=== PATIENT | male | born 1980 | race Caucasian/White ===

== ENCOUNTER 2019-09-02 06:58 | Emergency (ER) | payer OTHER, SELFPAY ==
--- NOTE | 2019-09-02 07:06 | ED_ITS ---
HPI - Abdominal Pain General Chief Complaint: Abdominal Pain Stated Complaint: lower rt abdominal pain Time Seen by Provider: 09/02/19 07:01 Source: patient Mode of arrival: Ambulatory Limitations: no limitations History of Present Illness HPI narrative: 38-year-old male former smoker with history of diabetes presents with a chief complaint of severe, sudden onset right flank pain with radiation to his groin that started last night. He denies any provocation or palliation. He states the pain became so intense the vomited once just prior to arrival. He denies any fever or chills nor problems with bowel movements. He has had no dysuria, frequency, urgency or hematuria. Patient denies any recent travel, ex posure to ill persons nor history of kidney stones. MD complaint: flank pain Onset (ago): hour(s) Pain Consistency: intermittent Location: R flank Severity: severe Quality: cramping and stabbing Radiation: RLQ Relieving factors: nothing Exacerbating factors: nothing Associated symptoms: nausea and vomiting Related Data Previous Rx's Medication Instructions Recorded hydrocodone-acetaminophen 1 tab PO Q4-6H PRN #10 tab 09/02/19 ketorolac 10 mg PO Q6H PRN #14 tab 09/02/19 ondansetron 4 mg PO TID-QID PRN #10 tab 09/02/19 tamsulosin [Flomax] 0.4 mg PO DAILY #10 cap 09/02/19 Allergies Allergy/AdvReac Type Severity Reaction Status Date / Time No Known Drug Allergies Allergy Verified 09/02/19 08:16 Review of Systems Constitutional Constitutional: Denies chills, Denies fatigue, Denies fever(s), Denies frequent falls, Denies lethargy and Denies weakness Eyes Eyes: Denies change in vision, Denies eye discharge, Denies irritation and Denies loss of vision ENT Ears, Nose, Mouth, and Throat: Denies change in voice, Denies dizziness, Denies neck pain, Denies sore throat and Denies throat swelling Cardiovascular Cardiovascular: Denies chest pain, Denies irregular heart rhythm, Denies lig htheadedness, Denies palpitations, Denies dyspnea, Denies dyspnea on exertion and Denies orthopnea Respiratory Respiratory: Denies cough, Denies dyspnea, Denies dyspnea on exertion and Denies wheezing Gastrointestinal Gastrointestinal: Reports abdominal pain, Denies change in bowel habits, Denies diarrhea, Reports nausea and Reports vomiting Genitourinary Genitourinary: Denies hematuria, Reports flank pain, Denies urinary incontinence and Denies urinary urgency Musculoskeletal Musculoskeletal: Denies back pain, Denies muscle weakness, Denies neck pain, Denies numbness and Denies tingling Integumentary/Breasts Skin/Breast: Denies pruritus, Denies erythema, Denies rash and Denies wounds Neurologic Neurologic: Denies behavioral changes, Denies confusion, Denies dizziness, Denies frequent falls, Denies loss of vision, Denies numbness, Denies tingling and Denies weakness Psychiatric Psychiatric: Denies anxiety, Denies behavioral changes, Denies confusion, Denies depression, Denies homicidal ideation and Denies suicidal ideation Endocrine Endocrine: Denies fatigue, Denies flushing and Denies palpitations Hematologic/Lymphatic Hematologic/Lymphatic: Denies easy bruising Allergic/Immunologic Allergic/Immunologic: Denies urticaria, Denies throat swelling and Denies wheez ing Patient History Social History Smoking Status: Former smoker Smoking Status: Former smoker Substance Use Type: does not use Exam Narrative Exam Narrative: GENERAL: [38] year old patient appears stated age. Well- nourished, well-developed patient, in mild distress. Obviously uncomfortable, pacing HEAD: Atraumatic. Normocephalic. EYES: Pupils equal round and reactive. Extraocular motions intact. No scleral ic terus. No injection or drainage. ENT: Nose without bleeding, purulent drainage. Throat without erythema, tonsillar hypertrophy or exudate. Airway patent. NECK: Trachea midline. Non tender CARDIOVASCULAR: Regular rate and rhythm without murmurs, gallops, or rubs. RESPIRATORY: Clear to auscultation. Breath sounds equal bilaterally. No wheezes, rales, or rhonchi. GASTROINTESTINAL: Abdomen soft, non-tender, nondistended. EXTREMITIES: No edema or joint tenderness. BACK: Nontender without deformity or crepitance. No flank tenderness. NEURO: AOx3. SKIN: No rash or erythema of visible areas Initial Vital Signs Initial Vital Signs: Vital Signs Temperature 97.8 F 09/02/19 07:17 Pulse Rate 99 H 09/02/19 07:17 Respiratory Rate 18 09/02/19 07:17 Blood Pressure 173/101 H 09/02/19 07:17 Pulse Oximetry 97 09/02/19 07:17 Course Orders Ordered: ED Orders 09/02/19 07:28 CT kidney ureter bladder (KUB) Stat 09/02/19 08:03 Basic Metabolic Panel Stat Complete Blood Count AUTO DIFF Stat Ondansetron HCl (Zofran) 4 mg IV Q4HR PRN PRN Reason: Nausea And Vomiting Last Admin: 09/02/19 08:08 Dose: 4 mg Documented by: ELEANOR Discontinued Medications Sodium Chloride (Normal Saline 0.9%) 1,000 mls @ 1,000 mls/hr IV BOLUS ONE Stop: 09/02/19 08:21 Last Admin: 09/02/19 08:09 Dose: 1,000 mls/hr Documented by: ELEANOR Ketorolac Tromethamine (Toradol) 15 mg IV NOW ONE Stop: 09/02/19 07:23 Last Admin: 09/02/19 08:08 Dose: 15 mg Documented by: ELEANOR Vital Signs Vital signs: Vital Signs - 8 hr 09/02/19 07:17 09/02/19 08:16 09/02/19 08:34 Temperature 97.8 F Pulse Rate 99 H 107 H 109 H Respiratory Rate 18 18 20 Blood Pressure 173/101 H Blood Pressure [Right Arm] 158/79 H 139/73 Pulse Oximetry 97 96 97 MDM - Abdominal Pain Lab Data Result diagrams: 09/02/19 08:03 09/02/19 08:03 Labs: Lab Results 09/02/19 09/02/19 Range/Units 08:03 08:03 WBC 8.3 (4.5-11.0) X10^3/uL RBC 4.61 (4.5-5.9) X10^6/uL Hgb 10.7 L (13.5-17.5) g/dL Hct 32.2 L (41-53) % MCV 69.9 L (80-100) fL MCH 23.2 L (26-34) PG MCHC 33.1 (30-36) % RDW 18.7 H (11.6-14.8) % Plt Count 297 (150-400) X10^3/uL Neut % (Auto) 74.1 (50-75) % Lymph % (Auto) 17.6 L (25-40) % [place] % (Auto) 6.0 (3-14) % Eos % (Auto) 1.6 L (2-4) % Baso % (Auto) 0.7 (0-2) % Neut # (Auto) 6100 (6271-7445) /uL Lymph # (Auto) 1500 (6879-3254) /uL [place] # (Auto) 500 (0-900) /uL Eos # (Auto) 100 (0-450) /uL Baso # (Auto) 100 (0-100) /uL Sodium 132 L (137-145) mmol/L Potassium 4.3 (3.4-5.1) mmol/L Chloride 99 (98-107) mmol/L Carbon Dioxide 17 L (22-32) mmol/L BUN 12 (9-20) mg/dL Creatinine 0.66 (0.66-1.25) mg/dL Estimated GFR > 60.0 (>60) mL/min BUN/Creatinine Ratio 18.2 (6-22) Glucose 336 H (70-100) mg/dL Calcium 9.1 (8.4-10.2) mg/dL Point of care testing: Urine Dip Bedside Urine Glucose 1000 mg/dl Bedside Urine Bilirubin - Negative Bedside Urine Ketone + 15 Urine Specific [place] 1.030 Bedside Urine Occult Blood +++ Bedside Urine pH 5.0 Bedside Urine Protein ++ 100 Bedside Urine Urobilinogen - Negative Bedside Urine Nitrite - Negative Bedside Urine Leukocytes - Negative Esterase Discharge Plan Departure Patient Disposition: Home Clinical Impression: Kidney calculus Instructions: DI for Kidney Stones Activity Restrictions/Additional Instructions: *You have been diagnosed with [ right sided 3mm kidney stone ] *What to do: *Take medications as directed *Follow up with your primary care provider in 2-3 days, call for an appointment. Let them know you were seen in the Emergency Department and that we ask that you be seen in follow up *Return to ER if you should have any new, worsening or concerning symptoms Prescriptions: New hydrocodone-acetaminophen 5-325 mg tablet 1 tab PO Q4-6H PRN (Reason: pain) Qty: 10 RF: 0 ketorolac 10 mg tablet 10 mg PO Q6H PRN (Reason: pain) Qty: 14 RF: 0 tamsulosin [Flomax] 0.4 mg capsule 0.4 mg PO DAILY Qty: 10 RF: 0 ondansetron 4 mg tablet,disintegrating 4 mg PO TID-QID PRN (Reason: nausea and vomiting) Qty: 10 RF: 0 Referrals: [facility] [Outside] Joselin Villegas MD [Physician] - ED Sign-out Cosign ED Attending Cosignature Attestation: I was immediately available in the department for consultation. This documentation has been reviewed and I agree with assessment and plan. Supervised by Gianni Ramirez DO
[2019-09-02 07:17] VITALS: BP 173/101; PULSE 99; RESP 18; TEMP 36.6; O2SAT 97; BMI 36.9
--- NOTE | 2019-09-02 07:28 | DI.CT.S_ITS ---
PROCEDURE: CT KIDNEY URETER BLADDER (KUB) INDICATIONS: severe RLQ pain TECHNIQUE: Noncontrast 5 mm thick sections acquired from the diaphragms to the symphysis. 5 mm thick coronal and sagittal reformats were then performed. For radiation dose reduction, the following was used: automated exposure control, adjustment of mA and/or kV according to patient size. COMPARISON: [facility], CT, CT ABD PELVIS W CON, 08/30/2016, 12:58. FINDINGS: Image quality: Diagnostic Lung bases: Lung bases are clear. Heart size is normal. Urinary system: There is a 4 x 4 by 4 mm calculus identified within the proximal right ureter (image 56, series 2) with associated [id number] up stream hydroureter and hydronephrosis. Perinephric edema is also present. No additional ureteral calculi are evident bilaterally. There is a punctate (1 mm) nonobstructing inferior left renal calculus (image 45, series 4). No hydronephrosis or hydroureter on the left is present. The bladder is decompressed. No bladder calculi are evident. The prostate is not enlarged. Other solid organs: The liver is hypodense when compared to the spleen. The spleen, pancreas, and adrenals are unremarkable. Peritoneum and bowel: Small bowel loops are nondilated. Moderate residual stool is seen within the colon. No free fluid, loculated fluid collection or free air is evident. Nodes and vessels: No retroperitoneal or mesenteric adenopathy by size criteria. Aorta and inferior vena cava are normal in caliber. Abdominal wall: No ventral hernias. Pelvis: No free pelvic fluid. No inguinal hernias or adenopathy. Bones: No suspicious bony lesions. No vertebral body compression fractures. IMPRESSION: 1. Small (4 mm) partially obstructing proximal right ureteral calculus with associated [id number]-hu-zbcopbul hydroureter and hydronephrosis. 2. Punctate nonobstructing inferior left renal calculus. 3. No bowel obstruction. 4. Hepatic steatosis. Note: The preliminary report provided by [facility]. is concordant with the final report. Dictated by: Nhan Beatty M.D. on 09/02/2019 at 8:14 Approved by: Nhan Beatty M.D. on 09/02/2019 at 8:20
[2019-09-02] MEDS: KETOROLAC 60 MG/2 ML VIAL 15 MG IV (08:08)
[2019-09-02] MEDS: ONDANSETRON 4 MG/2 ML INJ IV (08:08)
[2019-09-02] MEDS: SODIUM CHLORIDE 0.9% 1,000 ML 1000 ML IV (08:09)
[2019-09-02 08:16] VITALS: BP 158/79; PULSE 107; RESP 18; O2SAT 96
--- NOTE | 2019-09-02 08:18 | PC.NURSE ---
pt reports, while sitting developed right lower abdominal pain, unable to sleep due to pain, nausea and vomiting this morning, denies trauma,injuries or traveling, denies fever. arrived alert and awake, skin pale, dry ,+nausea, moving all ext. ambulate to bathroom with steady gait.
[2019-09-02 08:27] LABS: BUN Creatinine Ratio 18.2 (6-22); Blood Urea Nitrogen 12 mg/dL (9-20); Calcium 9.1 mg/dL (8.4-10.2); Carbon Dioxide 17 mmol/L (22-32); Chloride 99 mmol/L (98-107); Estimated Glomerular Filt Rate > 60.0 mL/min (>60); Glucose 336 mg/dL (70-100); HEMOLYSIS 49 (0-50); Potassium 4.3 mmol/L (3.4-5.1); Sodium 132 mmol/L (137-145)
[2019-09-02 08:34] VITALS: BP 139/73; PULSE 109; RESP 20; O2SAT 97
[2019-09-02 08:35] LABS: Add Manual Diff / Slide Review NO; Basophils Absolute Auto 100 /uL (0-100); Basophils Percent Auto 0.7 % (0-2); Eosinophils Absolute Auto 100 /uL (0-450); Eosinophils Percent Auto 1.6 % (2-4); Hematocrit 32.2 % (41-53); Hemoglobin 10.7 g/dL (13.5-17.5); Lymphocytes Absolute Auto 1500 /uL (1100-4500); Lymphocytes Percent Auto 17.6 % (25-40); Mean Corpuscular HGB Conc 33.1 % (30-36); Mean Corpuscular Hemoglobin 23.2 PG (26-34); Mean Corpuscular Volume 69.9 fL (80-100); Monocytes Absolute Auto 500 /uL (0-900); Neutrophils Absolute Auto 6100 /uL (1500-7000); Neutrophils Percent Auto 74.1 % (50-75); Platelet Count 297 X10^3/uL (150-400); Red Blood Cell Count 4.61 X10^6/uL (4.5-5.9); Red Cell Distribution Width 18.7 % (11.6-14.8); White Blood Cell Count 8.3 X10^3/uL (4.5-11.0)
--- NOTE | 2019-09-02 08:35 | PC.NURSE ---
pt able to sleep, easily awaken with verbal stimuli, states, feeling much better.
[2019-09-02 10:14] LABS: Anisocytosis 1+; Hypochromasia 1+; Microcytosis 1+
== END 2019-09-02 09:21 | disposition home or self-care (01) ==
PROVIDERS: Emergency Provider Emergency Medicine
DX: N20.0 Calculus of kidney (principal); E11.9 Type 2 diabetes mellitus without complications; R11.2 Nausea with vomiting, unspecified
CPT/HCPCS: 36415; 74176; 80048; 81003; 85025; 96361; 96374; 96375; 99284; J1885; J2405

== ENCOUNTER 2019-09-15 08:56 | Emergency (ER) | payer OTHER, SELFPAY ==
[2019-09-15 09:14] VITALS: BP 159/91; PULSE 98; RESP 19; TEMP 36.8; O2SAT 100; BMI 36.9
--- NOTE | 2019-09-15 09:15 | ED_ITS ---
HPI - General Adult General Chief complaint: Dental/Oral Stated complaint: Infection of gums x3 Time Seen by Provider: 09/15/19 09:12 Source: patient Mode of arrival: Ambulatory Limitations: no limitations History of Present Illness HPI narrative: 38-year-old male here for evaluation of right upper jaw pain. He states that he thinks he has a dental infection. He has not been on any antibiotics for this. Has been going on for the past 3 days. Took some leftover hydrocodone that he had at home yesterday because of the pain. No fevers. No problems swallowing. Related Data Previous Rx's Medication Instructions Recorded hydrocodone-acetaminophen 1 tab PO Q4-6H PRN #10 tab 09/02/19 ketorolac 10 mg PO Q6H PRN #14 tab 09/02/19 ondansetron 4 mg PO TID-QID PRN #10 tab 09/02/19 tamsulosin [Flomax] 0.4 mg PO DAILY #10 cap 09/02/19 penicillin V potassium 500 mg PO QID 7 Days #28 tab 09/15/19 Allergies Allergy/AdvReac Type Severity Reaction Status Date / Time No Known Drug Allergies Allergy Verified 09/02/19 08:16 Review of Systems Constitutional Constitutional: Denies fever(s) ENT Comments: Right upper jaw pain Cardiovascular Cardiovascular: Denies dyspnea Respiratory Respiratory: Denies dyspnea Integumentary/Breasts Skin/Breast: Denies lesions and Denies rash Neurologic Neurologic: Denies behavioral changes Psychiatric Psychiatric: Denies behavioral changes Patient History Medical History Diabetes (Inactive) Kidney calculus (Inactive) Social History Smoking Status: Former smoker Smoking Status: Former smoker Substance Use Type: does not use Exam Initial Vital Signs Initial Vital Signs: Vital Signs Temperature 98.2 F 09/15/19 09:14 Pulse Rate 98 H 09/15/19 09:14 Respiratory Rate 19 09/15/19 09:14 Blood Pressure 159/91 H 09/15/19 09:14 Pulse Oximetry 100 09/15/19 09:14 Const General: cooperative, comfortable and well developed Limitations: mental status not altered HENMT Head: normal to inspection and normocephalic Ears: TM's normal bilaterally Nose: external nose normal Face and sinus: normal facial exam Mouth: oral mucosae normal Teeth and gingiva: caries and fair dentition Throat: posterior oropharynx normal Resp Effort & Inspection: normal respiratory effort Skin Lesions: no lesions Rashes: no rashes Neuro General: alert and awake Cognition: normal cognition Speech: speech normal Extrem General: capillary refill normal Course Vital Signs Vital signs: Vital Signs - 8 hr 09/15/19 09:14 Temperature 98.2 F Pulse Rate 98 H Respiratory Rate 19 Blood Pressure 159/91 H Pulse Oximetry 100 Medical Decision Making MDM Narrative Medical decision making narrative: No problems breathing, no fevers, in no defined abscess seen on exam that would warrant intervention here in the ER. Is tender in his right upper jaw. Will send home on antibiotics due to presumed infection. He was given return precautions and follow-up instructions. He expressed understanding and agreement. Discharge Plan Departure Patient Disposition: Home Clinical Impression: Pain, dental Instructions: Tooth Abscess Activity Restrictions/Additional Instructions: You can take Tylenol and/or ibuprofen for any discomfort. I do recommend that you continue to make contact with your dentist for definitive treatment. Your prescription was electronically transmitted to [facility] Prescriptions: New penicillin V potassium 500 mg tablet 500 mg PO QID 7 Days Qty: 28 RF: 0 No Action hydrocodone-acetaminophen 5-325 mg tablet 1 tab PO Q4-6H PRN (Reason: pain) Qty: 10 RF: 0 ketorolac 10 mg tablet 10 mg PO Q6H PRN (Reason: pain) Qty: 14 RF: 0 tamsulosin [Flomax] 0.4 mg capsule 0.4 mg PO DAILY Qty: 10 RF: 0 ondansetron 4 mg tablet,disintegrating 4 mg PO TID-QID PRN (Reason: nausea and vomiting) Qty: 10 RF: 0
== END 2019-09-15 09:25 | disposition home or self-care (01) ==
PROVIDERS: Emergency Provider Emergency Medicine
DX: K08.89 Other specified disorders of teeth and supporting structures (principal); Z87.891 Personal history of nicotine dependence
CPT/HCPCS: 99281

== ENCOUNTER 2020-08-11 09:17 | Emergency (ER) | payer OTHER, SELFPAY ==
[2020-08-11 09:26] VITALS: BP 152/100; PULSE 80; RESP 15; TEMP 36.8; O2SAT 99; BMI 36.1
--- NOTE | 2020-08-11 09:31 | ED.GENADULT ---
HPI - General Adult General Chief complaint: Nausea/Vomiting/Diarrhea Stated complaint: ATE STEAK WEDNESDAY, DOESN'T FEEL LIKE IT DIGESTED Time Seen by Provider: 08/11/20 09:27 Source: patient Mode of arrival: Ambulatory Limitations: no limitations History of Present Illness HPI narrative: Patient is a 39-year-old male sent over from the walk-in clinic for evaluation of what he thinks is a piece of steak stuck in his esophagus. He states that 2 days ago he was eating steak and he swallowed it and felt like it got stuck in his upper esophagus. He has had the sensation since that time. He has not had any problems breathing. Has not vomited. He has been able to swallow liquids and has been able to eat soft foods. He was able to swallow his medications this morning. He has not tried anything for the symptoms. He states that a couple times over the past several months he has had issues like this however they have all resolved on their own. Related Data Previous Rx's Medication Instructions Recorded hydrocodone-acetaminophen 1 tab PO Q4-6H PRN #10 tab 09/02/19 ketorolac 10 mg PO Q6H PRN #14 tab 09/02/19 ondansetron 4 mg PO TID-QID PRN #10 tab 09/02/19 tamsulosin [Flomax] 0.4 mg PO DAILY #10 cap 09/02/19 Allergies Allergy/AdvReac Type Severity Reaction Status Date / Time No Known Drug Allergies Allergy Verified 08/11/20 09:29 Review of Systems Constitutional Constitutional: Denies fatigue, Denies fever(s) and Denies headache(s) ENT Ears, Nose, Mouth, and Throat: Denies headache(s) and Denies sore throat Cardiovascular Cardiovascular: Denies chest pain and Denies dyspnea Respiratory Respiratory: Denies dyspnea Gastrointestinal Gastrointestinal: Denies abdominal pain, Denies change in bowel habits, Denies nausea and Denies vomiting Comments: Steak stuck in his esophagus Integumentary/Breasts Skin/Breast: Denies lesions and Denies rash Neurologic Neurologic: Denies behavioral changes and Denies headache(s) Psychiatric Psychiatric: Denies behavioral changes Endocrine Endocrine: Denies fatigue Hematologic/Lymphatic On Anticoagulants: No Allergic/Immunologic Allergic/Immunologic: Denies urticaria Patient History Medical History (Updated 08/11/20 @ 10:22 by Joshua Jordan DO) Diabetes Kidney calculus Social History Smoking Status: Former smoker Smoking Status: Former smoker alcohol intake frequency: 0-2 drinks per day Substance Use Type: does not use Exam Initial Vital Signs Initial Vital Signs: Vital Signs Temperature 98.3 F 08/11/20 09:26 Pulse Rate 80 08/11/20 09:26 Respiratory Rate 15 08/11/20 09:26 Blood Pressure 152/100 H 08/11/20 09:26 Pulse Oximetry 99 08/11/20 09:26 Const General: cooperative, comfortable, well developed and well groomed Limitations: mental status not altered HENMT Head: normal to inspection and normocephalic Resp Effort & Inspection: normal respiratory effort Auscultation: clear to auscultation bilaterally Cardio Rate: regular rate Rhythm: regular rhythm Skin Lesions: no lesions Rashes: no rashes Neuro General: patient alert and patient awake Cognition: normal cognition Speech: speech normal Extrem General: normal to inspection and capillary refill normal Psych Appearance: grossly normal and well kempt Course Orders Ordered: ED Orders 08/11/20 09:38 Complete Blood Count AUTO DIFF Stat Comprehensive Metabolic Panel Stat Lipase Stat Discontinued Medications Al Hydrox/Mg Hydrox/Simethicone 20 ml/ Lidocaine HCl 15 ml 0 ml PO NOW ONE Stop: 08/11/20 09:31 Last Admin: 08/11/20 09:53 Dose: 35 ml Documented by: Glucagon (Glucagon,Human Recombinant 1 Mg/Ml Vial) 1 mg IV NOW ONE Stop: 08/11/20 09:27 Last Admin: 08/11/20 09:42 Dose: 1 mg Documented by: Vital Signs Vital signs: Vital Signs - 8 hr 08/11/20 09:26 Temperature 98.3 F Pulse Rate 80 Respiratory Rate 15 Blood Pressure 152/100 H Pulse Oximetry 99 Medical Decision Making Lab Data Lab results reviewed: Yes I reviewed the patient's lab results. Result diagrams: 08/11/20 09:35 08/11/20 09:35 Labs: Lab Results 08/11/20 08/11/20 Range/Units 09:35 09:35 WBC 6.7 (4.5-11.0) X10^3/uL RBC 5.11 (4.5-5.9) X10^6/uL Hgb 14.1 (13.5-17.5) g/dL Hct 42.6 (41-53) % MCV 83.4 (80-100) fL MCH 27.7 (26-34) PG MCHC 33.2 (30-36) % RDW 14.2 (11.6-14.8) % Plt Count 269 (150-400) X10^3/uL Neut % (Auto) 58.2 (50-75) % Lymph % (Auto) 31.3 (25-40) % [place] % (Auto) 7.1 (3-14) % Eos % (Auto) 2.7 (2-4) % Baso % (Auto) 0.7 (0-2) % Neut # (Auto) 3900 (5553-2203) /uL Lymph # (Auto) 2100 (5850-7929) /uL [place] # (Auto) 500 (0-900) /uL Eos # (Auto) 200 (0-450) /uL Baso # (Auto) 0 (0-100) /uL Sodium 136 L (137-145) mmol/L Potassium 4.3 (3.4-5.1) mmol/L Chloride 101 (98-107) mmol/L Carbon Dioxide 27 (22-32) mmol/L BUN 9 (9-20) mg/dL Creatinine 0.65 L (0.66-1.25) mg/dL Estimated GFR > 60.0 (>60) mL/min BUN/Creatinine Ratio 13.8 (6-22) Glucose 165 H (70-100) mg/dL Calcium 9.8 (8.4-10.2) mg/dL Total Bilirubin 0.7 (0.2-1.3) mg/dL AST 47 (17-59) IU/L ALT 68 H (<50) IU/L Alkaline Phosphatase 73 (38-126) U/L Total Protein 7.6 (6.3-8.2) g/dL Albumin 4.7 (3.5-5.0) g/dL Globulin 2.9 (1.7-4.1) g/dL Albumin/Globulin Ratio 1.6 (1.0-2.8) Lipase 68 (23-300) U/L [facility] Narrative Medical decision making narrative: Patient is not in any respiratory distress. He is able to tolerate his own secretions and even took his medications this morning and is able to drinking even tolerate soft foods. I have low suspicion for other etiologies such as pulmonary or cardiac. He states that the symptoms started after he swallowed a piece of steak and has continued since then and this is happened a couple times over the past couple months. Glucagon was unsuccessful. Minimal if any improvement with the GI cocktail. I did discuss the case with Dr. Pollard who stated that given the fact that he can tolerate his secretions and is able to eat and take his medications that patient can follow-up later this week and the general surgery clinic. I did discuss this with him. He is going to contact the [facility] in his primary doctor's office tomorrow for follow-up. He was given return precautions and follow-up instructions. He expressed understanding and agreement. Discharge Plan Departure Patient Disposition: Home Clinical Impression: Dysphagia Instructions: Esophageal Dysphagia Activity Restrictions/Additional Instructions: Recommend that you do continue to eat soft foods. Be sure you take small portion sizes. You can take your medications like normal. I did discuss her case with Dr. Pollard who was the general surgeon on-call today. He would like you to contact his office tomorrow at [phone]. Also recommend you contact your primary doctor tomorrow as well. Return to the emergency department for any new or worsening symptoms. Prescriptions: No Action hydrocodone-acetaminophen 5-325 mg tablet 1 tab PO Q4-6H PRN (Reason: pain) Qty: 10 RF: 0 ketorolac 10 mg tablet 10 mg PO Q6H PRN (Reason: pain) Qty: 14 RF: 0 tamsulosin [Flomax] 0.4 mg capsule 0.4 mg PO DAILY Qty: 10 RF: 0 ondansetron 4 mg tablet,disintegrating 4 mg PO TID-QID PRN (Reason: nausea and vomiting) Qty: 10 RF: 0 Referrals: Reg Lawson MD [Primary Care Provider] -
[2020-08-11] MEDS: GLUCAGON,HUMAN RECOMBINANT 1 MG/ML VIAL IV (09:42)
[2020-08-11 09:45] LABS: Add Manual Diff / Slide Review NO; Basophils Absolute Auto 0 /uL (0-100); Basophils Percent Auto 0.7 % (0-2); Eosinophils Absolute Auto 200 /uL (0-450); Eosinophils Percent Auto 2.7 % (2-4); Hematocrit 42.6 % (41-53); Hemoglobin 14.1 g/dL (13.5-17.5); Lymphocytes Absolute Auto 2100 /uL (1100-4500); Lymphocytes Percent Auto 31.3 % (25-40); Mean Corpuscular HGB Conc 33.2 % (30-36); Mean Corpuscular Hemoglobin 27.7 PG (26-34); Mean Corpuscular Volume 83.4 fL (80-100); Monocytes Absolute Auto 500 /uL (0-900); Monocytes Percent Auto 7.1 % (3-14); Neutrophils Absolute Auto 3900 /uL (1500-7000); Neutrophils Percent Auto 58.2 % (50-75); Platelet Count 269 X10^3/uL (150-400); Red Blood Cell Count 5.11 X10^6/uL (4.5-5.9); Red Cell Distribution Width 14.2 % (11.6-14.8); White Blood Cell Count 6.7 X10^3/uL (4.5-11.0)
[2020-08-11] MEDS: MAG HYDROX/ALUMINUM/SIMETH SUS 20 ML, LIDOCAINE VISCOUS 2% 15 ML PO (09:53)
[2020-08-11 09:56] LABS: Alanine Aminotransferase 68 IU/L (<50); Albumin 4.7 g/dL (3.5-5.0); Albumin Globulin Ratio 1.6 (1.0-2.8); Alkaline Phosphatase 73 U/L (38-126); Aspartate Aminotransferase 47 IU/L (17-59); BUN Creatinine Ratio 13.8 (6-22); Bilirubin Total 0.7 mg/dL (0.2-1.3); Blood Urea Nitrogen 9 mg/dL (9-20); Calcium 9.8 mg/dL (8.4-10.2); Carbon Dioxide 27 mmol/L (22-32); Chloride 101 mmol/L (98-107); Estimated Glomerular Filt Rate > 60.0 mL/min (>60); Globulin 2.9 g/dL (1.7-4.1); Glucose 165 mg/dL (70-100); HEMOLYSIS 31 (0-50); Lipase 68 U/L (23-300); Potassium 4.3 mmol/L (3.4-5.1); Sodium 136 mmol/L (137-145); Total Protein 7.6 g/dL (6.3-8.2)
== END 2020-08-11 10:35 | disposition home or self-care (01) ==
PROVIDERS: Emergency Provider Emergency Medicine; PCP Family Medicine
DX: R13.10 Dysphagia, unspecified (principal); E11.9 Type 2 diabetes mellitus without complications
CPT/HCPCS: 36415; 80053; 83690; 85025; 96374; 99281; 99284; J1610

== ENCOUNTER → 2020-09-11 08:53 | Outpatient (CLI) | payer OTHER, SELFPAY ==
[2020-09-11 11:49] LABS: COVID19 -Nasal RAPID Negative (Negative)
== END ==
PROVIDERS: PCP Family Medicine; Visit Provider Surgery
DX: Z20.822 Contact with and (suspected) exposure to COVID-19 (principal)
CPT/HCPCS: 87635; C9803

== ENCOUNTER 2020-09-12 14:53 | Day surgery (SDC) | payer OTHER, SELFPAY ==
--- NOTE | 2020-09-12 | PATH_ITS ---
[facility] Accession Number: [id number] . 01 Material submitted: . duodenum - DUODENUM . 02 Diagnosis: Duodenum, Biopsy: Duodenal mucosa with foveolar metaplasia, consistent with peptic duodenitis. Negative for active inflammation, features of sprue, dysplasia or malignancy. MRV 09/16/2020 1244 Local . 02 Electronically signed: . Ricardo Hebert MD, PhD, Pathologist NPI- [id number] . 01 Gross description: . DUODENUM: Received in formalin are 2 fragment(s) of vann, soft tissue measuring 0.1 x 0.1 x 0.1 cm to 0.3 x 0.2 x 0.2 cm submitted entirely in 1 cassette(s) /JOEL 09/13/2020 2314 Local . 02 Pathologist provided ICD-10: K29.80 . 02 CPT . 566657 Performed at: 01 [facility] [address], [place], [place] [id number] MD Dylon Barnes MD Phone: [phone] Performed at: 02 [facility] [address] [place], [place] [id number] MD Kayla Deleon MD Phone: [phone]
[2020-09-12] MEDS: LACTATED RINGERS 1,000 ML 200 ML IV (15:22)
[2020-09-12 15:25] VITALS: BP 136/78; PULSE 69; RESP 16; TEMP 36.3; O2SAT 97; BMI 34.8
--- NOTE | 2020-09-12 16:37 | PM.PREOP ---
Pre-operative Note Interval Note History & Physical reviewed/Exam performed by Physician: Yes Changes to H&P: No
--- NOTE | 2020-09-12 16:54 | PM.OP.ENDO ---
Operative Date/Time/Diagnoses Date of procedure: 09/12/20 Time of procedure: 16:54 Pre-op diagnosis: Esophageal dysphagia Post-op diagnosis: same Procedure & Clinicians Study performed: Esophagoduodenoscopy Same procedure as scheduled: Yes Indications: 39-year-old male with esophageal dysphagia here for EGD Surgeon: Yadiel Pollard Procedure Notes Procedure in detail: Patient placed in left lateral decubitus position. Time out was performed. Procedural sedation was administered with Versed and Fentanyl. A bite block was placed. the scope was inserted into the mouth and advanced through the esophagus and into the stomach. The pylorus was intubated. The duodenum was notable for mild duodenitis there was no ulcer or active hemorrhage. The scope was retroflexed within the stomach and there was no hiatal hernia. No ulcers, or gastritis. The scope was withdrawn into the esophagus the Z line was seen at 40 cm from the incisions. There was no Swain's esophagitis or masses or strictures. The scope passed easily from the esophagus into the stomach. Stomach was desufflated and scope removed. Patient tolerated procedure well. Specimen(s): other (Duodenum) Complications: none Impression: Duodenitis Post-procedure Recommendations: Reflux diet and Start medication(s) (Pepcid) Disposition: same day surgery
[2020-09-12] MEDS: LIDOCAINE 4% SOLN 50 ML 20 ML TOP (16:57)
[2020-09-12 16:58] VITALS: BP 143/82; PULSE 90; RESP 13; TEMP 37; O2SAT 95
[2020-09-12] MEDS: MIDAZOLAM 5 MG/5 ML VIAL IV (16:58)
[2020-09-12] MEDS: fentaNYL 250 MCG/5 ML INJ IV (16:58)
[2020-09-12 17:03] VITALS: BP 144/95; PULSE 84; RESP 12; O2SAT 96
[2020-09-12 17:08] VITALS: BP 127/93; PULSE 81; RESP 14; O2SAT 95
[2020-09-12 17:24] VITALS: O2SAT 97
== END 2020-09-12 17:22 | disposition home or self-care (01) ==
PROVIDERS: PCP Family Medicine; Referring Provider Surgery; Visit Provider Surgery
PROC: 0DJ08ZZ Inspection of Upper Intestinal Tract, Via Natural or Artificial Opening Endoscopic (ICD-10-PCS; CPT 43235; principal; 2020-09-12 16:00)
DX: R13.14 Dysphagia, pharyngoesophageal phase (principal); E11.9 Type 2 diabetes mellitus without complications; E66.9 Obesity, unspecified; Z79.84 Long term (current) use of oral hypoglycemic drugs; Z68.35 Body mass index [BMI] 35.0-35.9, adult; K29.80 Duodenitis without bleeding
CPT/HCPCS: 43235; J2250; J3010

== ENCOUNTER → 2021-03-22 19:32 | Outpatient (CLI) | payer OTHER, SELFPAY ==
[2021-03-22 20:10] LABS: COVID19 -Nasal RAPID POSITIVE (Negative)
== END ==
PROVIDERS: PCP Family Medicine; Visit Provider Nurse Practitioner
DX: U07.1 COVID-19 (principal)
CPT/HCPCS: 87635